=== PATIENT | female | born 1965 | race Caucasian/White ===

== ENCOUNTER 2016-08-26 06:03 | Observation (INO) | payer OTHER ==
[~2016-08-26] VITALS: Ht 160 cm; Wt 99.6 kg
[~2016-08-26 06:03] MED LIST: ALEV220C; CELE200C PO; MELO-1 PO; MULT1CHW70
[2016-08-26] MEDS ORDERED: INSULIN HUMAN REGULAR 1,000 UNITS/10 ML VIAL SQ PRN (06:30)
[2016-08-26] MEDS ORDERED: METOPROLOL TARTRATE 25 MG TAB PO PRN (06:30)
[2016-08-26 06:50] VITALS: BP 144/80; PULSE 57; RESP 16; TEMP 98.1; O2SAT 97
[2016-08-26] MEDS ORDERED: MICROFIBRILLAR COLLAGEN HEMOSTAT 70 X 35 MM BANDAGE ONE (07:10)
[2016-08-26] MEDS ORDERED: GELFOAM SIZE 100 ONE (07:10)
[2016-08-26] MEDS ORDERED: ceFAZolin 2 GM PREMIX 50 ML ONE (07:10)
[2016-08-26] MEDS ORDERED: VANCOMYCIN HCL 1000 MG VIAL ONE (07:10)
[2016-08-26] MEDS ORDERED: THROMBIN (TOPICAL) 5,000 UNIT VIAL ONE (07:10)
[2016-08-26] MEDS ORDERED: GENTAMICIN SULFATE 80 MG/2 ML VIAL ONE (07:11)
[2016-08-26] MEDS ORDERED: SODIUM CHLOR 0.9% 250 ML INJ 250 ML ONE (07:11)
[2016-08-26 07:15] LABS: AUTOMATED NEUTROPHIL # 1.8 TH/MM3 (1.8-7.7); BASOPHIL % 0.9 % (0.0-2.0); EOSINOPHIL # 0.2 TH/MM3 (0-0.4); EOSINOPHIL % 3.2 % (0.0-4.0); HEMATOCRIT 39.8 % (35.0-46.0); HEMO FLAGS DIFF FINAL; LYMPH % 47.9 % (9.0-44.0); LYMPHOCYTE # 2.2 TH/MM3 (1.0-4.8); MEAN CORPUSCULAR HEMOGLOBIN 26.6 PG (27.0-34.0); MEAN CORPUSCULAR HGB CONC 32.5 % (32.0-36.0); MONO % 8.9 % (0.0-8.0); NEUT % 39.1 % (16.0-70.0); PLATELET COUNT 228 TH/MM3 (150-450); RED BLOOD COUNT 4.85 MIL/MM3 (4.00-5.30); RED CELL DISTRIBUTION WIDTH 15.3 % (11.6-17.2); WHITE BLOOD COUNT 4.7 TH/MM3 (4.0-11.0)
--- NOTE | 2016-08-26 07:24 | RADRPT ---
EXAM DATE/TIME: 08/26/2016 06:32 [facility] COMPARISON: No previous studies available for comparison. INDICATIONS : Evaluate for pneumonia, pneumothorax, and communicable disease. Preop for cervical spine surgery. MEDICAL HISTORY : None. SURGICAL HISTORY : None. ENCOUNTER: Initial ACUITY: 1 day PAIN SCORE: 0/10 LOCATION: Bilateral chest FINDINGS: A single view of the chest demonstrates the lungs to be symmetrically aerated without evidence of mas s, infiltrate or effusion. The cardiomediastinal contours are unremarkable. Osseous structures are intact. Surgical clips are seen in the right upper quadrant of the abdomen. CONCLUSION: No acute disease. Denzel Marinelli MD on August 26, 2016 at 7:22 Board Certified Radiologist. This report was verified electronically.
[2016-08-26 07:27] LABS: ALT (GPT) 16 U/L (10-53); ANION GAP 6 MEQ/L (5-15); AST (GOT) 14 U/L (15-37); BICARBONATE 28.2 MEQ/L (21.0-32.0); BLOOD UREA NITROGEN 17 MG/DL (7-18); CHLORIDE 108 MEQ/L (98-107); GLOMERULAR FILTRATION RATE 83 ML/MIN (>89); POTASSIUM 3.8 MEQ/L (3.5-5.1); SODIUM (NA) 142 MEQ/L (136-145)
[2016-08-26 07:29] LABS: APTT (PATIENT) 27.3 SEC (24.3-30.1); PROTHROMBIN TIME - PATIENT 11.1 SEC (9.8-11.6)
[2016-08-26 07:30] LABS: ALKALINE PHOSPHATASE 73 U/L (45-117); TOTAL BILIRUBIN ADULT 0.5 MG/DL (0.2-1.0)
[2016-08-26 07:49] LABS: BACTERIA, URINE MANY /hpf; BLOOD, URINE NEG (NEG); COMMENT (UR) CULTURE INDICATED; CULTURE IF INDICATED CULTURE INDICATED; GLUCOSE,URINE NEG (NEG); KETONE, URINE NEG (NEG); MUCUS URINE FEW /lpf (OCC); NITRITE,URINE NEG (NEG); PH, URINE 5.5 (5.0-8.5); SQUAMOUS EPITHELIAL CELL URINE 115 /hpf (0-5); URINE COLOR YELLOW (YELLW/STRAW)
[2016-08-26] MEDS ORDERED: LACTATED RINGER'S 1000 ML IV SCH (08:00)
[2016-08-26] MEDS ORDERED: SODIUM CHLORID 0.9% 500 ML IV SCH (08:00)
[2016-08-26] MEDS ORDERED: ARTIFICIAL TEARS OPTH OINT 3.5 APPLIC/3.5 GM TUBO ONE (08:01)
[2016-08-26] MEDS ORDERED: FAMOTIDINE 20 MG/2 ML VIAL ONE (08:01)
[2016-08-26] MEDS ORDERED: fentaNYL CITRATE 250 MCG/5 ML AMP ONE (08:01)
[2016-08-26] MEDS ORDERED: ACETAMINOPHEN 1000 MG/100 ML VIAL IV ONE (08:01)
[2016-08-26] MEDS ORDERED: MIDAZOLAM HCL 2 MG/2 ML VIAL ONE (08:01)
[2016-08-26] MEDS ORDERED: PROPOFOL 200 MG/20 ML AMP IV ONE (12:00)
[2016-08-26] MEDS ORDERED: ONDANSETRON HCL 4 MG/2 ML VIAL IV PUSH ONE (12:00)
[2016-08-26] MEDS ORDERED: LACTATED RINGER'S 1000 ML INJ 1,000 ML IV ONE (12:00)
[2016-08-26] MEDS ORDERED: DO NOT ADM ANY ANTICOAGULANT DRUGS XX PRN ×2 (12:08→15:00)
[2016-08-26] MEDS ORDERED: *morphine SULFATE 8 MG/ML PERIprocedure ONLY ONE (12:33)
[2016-08-26] MEDS: NS + KCL 20 MEQ INJ 1,000 ML IV SCH (12:49)
[2016-08-26] MEDS ORDERED: ACETAMINOPHEN/HYDROcodone 325 MG/10 MG TAB PO PRN (13:00)
[2016-08-26] MEDS ORDERED: MENTHOL LOZENGE SUCK-ON PRN (13:00)
[2016-08-26] MEDS ORDERED: ONDANSETRON HCL 4 MG/2 ML VIAL IV PRN (13:00)
[2016-08-26] MEDS ORDERED: MORPHINE SULFATE 4 MG/ML INJ IV PUSH PRN ×2 (13:00)
[2016-08-26] MEDS ORDERED: ACETAMINOPHEN 325 MG TAB PO PRN (13:00)
[2016-08-26] MEDS ORDERED: SODIUM CHLORIDE 0.9% FLUSH 5 ML FLUSH IVF PRN (13:00)
[2016-08-26] MEDS ORDERED: BISACODYL 10 MG SUPP PR PRN (13:00)
--- NOTE | 2016-08-26 13:38 | RADRPT ---
EXAM DATE/TIME: 08/26/2016 09:09 [facility] COMPARISON: No previous studies available for comparison. INDICATIONS : Anterior cervical fusion, herniated disk. MEDICAL HISTORY : Herniated cervical spine. SURGICAL HISTORY : None. ENCOUNTER: Initial ACUITY: 1 day PAIN SCORE: 0/10 LOCATION: Bilateral cervical spine FINDINGS: Two projection examination was performed. Patient is status post anterior cervical fusion at C5-6. Th ere is good position and alignment of the cervical spine fusion. The hardware is grossly intact. CONCLUSION: Good position and alignment on this postoperative study. Nik Madrigal MD on August 26, 2016 at 13:36 Board Certified Radiologist. This report was verified electronically.
[2016-08-26] MEDS: DEXAMETHASONE SOD PHOS 4 MG/ML VIAL IV SCH ×2 (13:54→19:37)
[2016-08-26] MEDS ORDERED: HYDR-3583 PO (14:48)
[2016-08-26 16:00] VITALS: BP 141/73; PULSE 70; RESP 20; TEMP 96.5; O2SAT 99
--- NOTE | 2016-08-26 16:02 | PD.OP ---
Operative Report Date of Surgery: Aug 26, 2016 Preoperative Diagnosis: C5-6 cervical spinal stenosis Postoperative Diagnosis: C5-6 cervical spinal stenosis Procedure: C5-6 anterior cervical discectomy, interbody arthrodesis using peek cage filled with autologous bone graft, C5-6 instrumented fixation using simplicity plate and screws Anesthesia: general Surgeon: Juan Miranda Sleep Scientist(s): Michelle Carreon Operation and Findings: INTRAOPERATIVE FINDINGS: Osteophytic/disc complex causing significant focal stenosis and mass effect on the dural sac INDICATIONS FOR THE PROCEDURE Ms Raymond is a 51 year-old female who presented with intractable neck pain and clinical evidence of C6 upper extremity radiculopathy. She failed maximum nonsurgical management including multiple modalities of conservative treatment as well as pain management interventions by an interventional pain specialist. A surgical decompression and arthrodhesis were indicated. The [id number] details of the procedure, indications, alternatives, risks and potential complications were fully discussed with the patient. The patient fully understood. All The questions were answered. No guarantees were given. The patient voiced requesting the procedure and provided informed consents. The patient was offered the alternative of delaying the procedure and continuing with nonsurgical management. DETAILS OF THE SURGICAL PROCEDURE After the induction of general anesthesia, endotracheal intubation was performed. A Hsieh catheter, bilateral NICOLE hose, and sequential compression devices were placed and kept throughout the procedure. The patient was positioned supine on a Luis table with the head over a gel doughnut. All pressure points were carefully padded with egg crate mattress. The eyes were tapped shut after ointment was applied by the anesthesiologist to prevent corneal abrasion. A Joo hugger was placed over the exposed lower body to maintain control of the core body temperature. The electrophysiological team placed the needles and electrodes in their proper location and baseline SSEP's and motor evoked potentials were registered. The anterior cervical region was prepped and draped in the usual sterile fashion. A localizing x-ray was performed with a C-arm. The surgical procedure was performed in several steps as follow: SURGICAL APPROACH A skin incision was made along the middle cervical crease with a #10 blade. The dissection was carried out through the platysma exposing the sternocleidomastoid muscle. The cervical spine was approached following the fascial layers of the neck just medial to the anterior border of the sternocleidomastoid and carotid sheath by a combination of sharp and dull dissection. The omohyoid muscle was identified and carefully dissected laterally and the deep cervical fascia was carefully opened. The longus colli muscles were retracted to each side of the midline. A marker was placed at the disc space C5-6 and a cross-table lateral x-ray performed with a C-arm. SURGICAL DECOMPRESSION In order to decompress the anterior surface of the spinal cord it was necessary to preform a microsurgical resection of the disk. At this point in the procedure the operating microscope was draped in the usual sterile fashion and brought to the field. The rest of the surgical procedure was performed using microdissection technique with the exception of the closure. Under the operative microscopic, an anterior osteophytic spur was carefully removed using the leksell, and a self-retaining retractor was placed underneath the longus colli muscle. The annulus at C5-6 was incised with a #15 blade and microdiscectomy was then carefully carried out using angled curets and pituitary forceps. The patient had a posterior osteophytic/disk complex which was producing mass affect on the anterior surface of the dural sac. This was carefully drilled with a TPS drill and resected with a think foot plate 2mm kerrison under high magnification. The posterior longitudinal ligament was then elevated with an angled curet and incised with a 15 bladed knife. A careful ressection of the posterior longitudinal ligament was carried out using a thin footplate 2 mm Kerrison. The decompression was then carried out laterally , and a bilateral foraminotomy was performed with a 2mm thin foot Kerrison. Then the vertebral bodies above and below the disk space were undercut using a 2 mm thin foot Kerrison. The epidural space was the systematically assessed with a nerve hook in search for disk fragments. An excellent decompression was achieved in both, the dural sac and bilateral exiting nerve roots. The incision was then irrigated with a large amount of antibiotic solution INTERBODY ARTHRODHESIS In order to avoid collapse of the disk space which would result in bilateral foraminal stenosis, and to increase the chances of a successful fusion, it was necessary to place an interbody cage filled with autologous bone. The initial intent was to place a mobi C artificial disk, but given the extense osteophitic spurs and osteoarthtitis changes it was not possible to properly place the prosthesis. An arthrodhesis became necessary At this point of the procedure, the superior and inferior endplates were then evenly decorticated with a TPS drill. The use of a drill in combination with a curette allowed me to systematically remove the cartilaginous endplates, exposing healthy bone for the interbody arthrodesis. forteen millimeters distraction pins were then placed at the vertebral bodies adjacent to the disk space, and gentle distraction was applied. The size of the interbody cage was then assessed using different size spacers, and a rasp was used to ensure no residual cartilage. A PEEK cage of the appropriate size was selected, and the interbody arthrodesis was then preformed by carefully impacting a PEEK cage filled with autologous bone graft to the disc space C5-6. An excellent position of the cage was achieved. This was was confirmed anatomically by felling the space posterior to the implant and distance to the anterior surface of the dural sac. Radiological confirmation of the position was performed with a cross lateral xray performed with the C-arm. INTERNAL INSTRUMENTAL FIXATION Once that the interbody device was in an appropriate position, it was necessary to stabilize the spine with anterior instrumentation. Anterior instrumentation has demonstrated to increase the rate of fusion, accelerate the patient's recovery, and decrease the rate of failed interbody grafts. At this point of the procedure, the distance between the vertebral bodies was carefully measures, and a Simplicity plate was brought to the field and presented in front of the C5 and 6 vertebral bodies. Contact Lens Fitter holes were then drilled using the TPS drill, and the plate was then secured to the spine using self-drilling, self-tapping screws. Initially, the inferior right screw was inserted, followed by placement of the contra lateral upper screw. The remaining screws were sequentially placed in a contra-lateral fashion. A proper purchase was achieved with all screws and the position of the cage, plate and screws, and alignment of the spine was assessed anatomically by direct visualization, and radiologically by performing a cross lateral xray of the cervical spine with the C-arm. CLOSURE The incision was irrigated with several liters of antibiotic solution. Hemostasis was achieved with a bipolar. The screws were locked to prevent backing out. The incision was then closed in layers. 3-0 Vicryl with interrupted sutures was used to close the platysma and subcutaneous tissue. The skin was closed with 4-0 running subcuticular Vicryl and Dermabond was applied to the skin. The drain was secured with a 3-0 nylon. At the end of the procedure the sponge, needle and instrument counts were all correct. The estimated blood loss was less than 50 cc. No blood transfusion was given. No intraoperative complications occurred. The patient received prophylactic antibiotics. The patient was then extubated and transferred to the recovery room in stable condition. Juan Miranda MD Aug 26, 2016 16:02
[2016-08-26] MEDS: ceFAZolin 2 GM PREMIX 50 ML IV SCH (16:35)
[2016-08-26 18:22] VITALS: O2SAT 99
[2016-08-26] MEDS: DOCUSATE SODIUM 100 MG CAP PO SCH (19:37)
--- NOTE | 2016-08-26 19:41 | EKG ---
Date Performed: 08/26/2016 Time Performed: 06:59:17 PTAGE: 51 years EKG: SINUS BRADYCARDIA BORDERLINE ECG NO PREVIOUS TRACING DOCTOR: Zenaida Jeronimo Interpretating Date/Time 08/26/2016 19:39:55
[2016-08-26] MEDS: CYCLOBENZAPRINE HCL 10 MG TAB PO PRN (20:42)
[2016-08-26] MEDS ORDERED: SODIUM CHLORIDE 0.9% FLUSH 5 ML FLUSH IVF SCH (21:00)
[2016-08-27] MEDS: ACETAMINOPHEN/HYDROcodone 325 MG/10 MG TAB PO PRN ×3 (00:47→12:46)
[2016-08-27] MEDS: DEXAMETHASONE SOD PHOS 4 MG/ML VIAL IV SCH ×2 (00:48→08:55)
[2016-08-27] MEDS: ceFAZolin 2 GM PREMIX 50 ML IV SCH ×2 (00:53→09:00)
[2016-08-27 01:20] VITALS: BP 131/60; PULSE 60; RESP 18; TEMP 97.5; O2SAT 97
[2016-08-27] MEDS: NS + KCL 20 MEQ INJ 1,000 ML IV SCH (03:07)
[2016-08-27 04:00] VITALS: BP 143/71; PULSE 53; RESP 16; TEMP 97; O2SAT 98
[2016-08-27] MEDS: CYCLOBENZAPRINE HCL 10 MG TAB PO PRN (05:30)
[2016-08-27 08:31] VITALS: BP 134/69; PULSE 48; RESP 20; TEMP 98.3; O2SAT 98
[2016-08-27] MEDS: DOCUSATE SODIUM 100 MG CAP PO SCH (08:55)
[2016-08-27] MEDS ORDERED: PANTOPRAZOLE SOD 40 MG DELAYED RELEASE TAB PO SCH (09:00)
[2016-08-27 09:35] VITALS: O2SAT 98
--- NOTE | 2016-08-27 10:20 | HHI.DCPOC ---
Discharge Care Plan Diagnosis: (1) Status post cervical arthrodesis Goals to Promote Your Health * To prevent worsening of your condition and complications * To maintain your health at the optimal level Directions to Meet Your Goals Take your medications as prescribed Follow your dietary instruction Follow activity as directed Keep your appointments as scheduled Take your immunizations and boosters as scheduled If your symptoms worsen call your PCP, if no PCP go to Urgent Care Center or Emergency Room Smoking is Dangerous to Your Health. Avoid second hand smoke Call the 24-hour hour crisis hotline for domestic abuse at Erin Magdaleno Aug 27, 2016 10:20
--- NOTE | 2016-08-27 10:24 | HHI.DS ---
Discharge Summary Admission Date Aug 26, 2016 at 12:50 Discharge Date: Aug 27, 2016 Admitting Diagnosis s/p cervical arthrodesis (1) Status post cervical arthrodesis Brief History Ms Raymond is a 51 year-old female who presented with intractable neck pain and clinical evidence of C6 upper extremity radiculopathy. She failed maximum nonsurgical management including multiple modalities of conservative treatment as well as pain management interventions by an interventional pain specialist. A surgical decompression and arthrodesis were indicated. CBC/BMP: 08/26/16 0655 08/26/16 0655 Significant Findings Laboratory Tests Test 08/26/16 08/26/16 06:55 07:20 Mean Corpuscular Hemoglobin 26.6 PG (27.0-34.0) Lymphocytes (%) (Auto) 47.9 % (9.0-44.0) Monocytes (%) (Auto) 8.9 % (0.0-8.0) Chloride Level 108 MEQ/L (98-107) Estimat Glomerular Filtration 83 ML/MIN (>89) Rate Aspartate Amino Transf 14 U/L (15-37) (AST/SGOT) Urine Turbidity CLOUDY (CLEAR) Urine Protein 30 mg/dL (NEG-TRACE) Urine Leukocyte Esterase LARGE (NEG) Urine RBC 7 /hpf (0-3) Urine WBC 16 /hpf (0-5) Urine Bacteria MANY /hpf (NONE) Urine Mucus FEW /lpf (OCC) Imaging Last Impressions Chest X-Ray 08/26/16 0000 Signed Impressions: Service Date/Time: Friday, August 26, 2016 06:32 - CONCLUSION: No acute disease. Denzel Marinelli MD Cervical Spine X-Ray 08/26/16 0000 Signed Impressions: Service Date/Time: Friday, August 26, 2016 09:09 - CONCLUSION: Good position and alignment on this postoperative study. Nik Madrigal MD PE at Discharge Ms. Raymond is alert and oriented, in no apparent distress. Speech is fluent. Follows commands well. Incision is clean and dry, with dressing in place. Cranial nerve examination: pupils to be equal, round and reactive to light. Extra-ocular movements are intact. Facial motor are normal and symmetrical. Gross hearing appears intact. Neck is immobilized by a [place] J collar. Muscle strength is 5/5 to both deltoid, biceps, triceps, and machine load clerk in the upper extremities. 5/5 to both iliopsoas, quadriceps, hamstrings, plantarflexion and dorsiflexion in lower extremities. Respiratory: clear Hospital Course Ms. Raymond underwent a C5-6 anterior cervical discectomy, interbody arthrodesis using peek cage filled with autologous bone graft, C5-6 instrumented fixation using simplicity plate and screws on Aug 26, 2016. Her surgery went well without complications. She reports of residual numbness and tingling down her arms posteriorly and has some mild posterior cervical pain between her shoulders. She denies chest pain, difficulty breathing, worsening motor function, shortness of breath. Activity restrictions, wound care, and signs and symptoms to watch for were fully discussed with the patient. She will be discharged home in stable conditions. Pt Condition on Discharge: Stable Discharge Disposition: Discharge Home Discharge Instructions DIET: Follow Instructions for: Heart Healthy Diet ADDITIONAL Diet Instructions: soft and advance as tolerated ACTIVITIES You can perform: Weight Bearing As Maddie ADDITIONAL Activity Instructio: Avoid strenuous activities, heavy lifting, overhead activities, repetitive bending, twisting, pushing, pulling or any activities which might result in stress over the spine. Avoid situtation that will put at risk for falls. Use assistive device as needed for walking. Wear cervical collar at all times, may remove only with meals. New Medications: Hydrocodone-Acetaminophen (Hydrocodone-Acetaminophen) 10-325 mg Tab 1 TAB PO Q6HR PRN PAIN SCALE 1 TO 5 #90 Ref 0 TAB Erin Magdaleno Aug 27, 2016 10:24
[2016-08-27 13:09] VITALS: BP 126/70; PULSE 60; RESP 20; TEMP 98.5; O2SAT 95
== END 2016-08-27 13:15 | disposition home or self-care (01) ==
LOC: HSDC 06:03 → INTOOBSV 12:50 → HSDI 12:50 → N05B 14:25
PROVIDERS: ADMIT Neurological Surgery; ATTEND Neurological Surgery
DX: M48.02 Spinal stenosis, cervical region (principal)
CPT/HCPCS: 00600; 20936; 22551; 22854; 71010; 72040; 76000; 80053; 81001; 85025; 85610; 85730; 87086; 93005; 94150; 97162; C1713; G0378; J0131; J0690; J1100; J1580; J2250; J2270; J2405; J3010; J3370; J3480; J7050; J7120; L0150; L0172